=== PATIENT | female | born 1980 | race Caucasian/White ===

== ENCOUNTER 2020-07-05 11:14 | Outpatient (RCR) | payer OTHER, SELFPAY ==
[2020-07-06] MEDS: RHO(D) IMMUNE GLOBULIN 300 MCG/2 ML SYRINGE IM (15:16)
== END 2020-10-03 23:59 | disposition home or self-care (01) ==
LOC: ANHLAB 11:14
PROVIDERS: Visit Provider Obstetrics & Gynecology
DX: Z29.13 Encounter for prophylactic Rho(D) immune globulin (principal); O36.0190 Maternal care for anti-D [Rh] antibodies, unspecified trimester, not applicable or unspecified; Z3A.00 Weeks of gestation of pregnancy not specified
CPT/HCPCS: 36415; 85461; 90384; 96372; J2790

== ENCOUNTER 2020-09-25 22:08 | Observation (INO) | payer OTHER, SELFPAY ==
[2020-09-25 22:20] VITALS: TEMP 36.6
[2020-09-25 23:00] VITALS: BMI 32.8
--- NOTE | 2020-09-26 00:52 | OBADM ---
This patient, Letty Denny, admitted to the OB room Labor/Delivery/Recovery 108 for observation. Patient/family oriented to hospital policies and general routines including ID bracelet, bed and alarms, visiting hours, pain management, procedures, bathroom and other care routines, personal items, smoking policy, room service/diet, and visiting hours. Patient/Family are encouraged to report perceived risks to care and to ask questions if they do not understand what they are told or what they should do.
--- NOTE | 2020-09-26 07:32 | P.PNOB_ITS ---
OB - Triage/Final Diagnosis Visit Information Date of evaluation: 09/26/20 Reason for evaluation: threatened labor Comments/Additional reasons for admission: I have assessed the risk for this patient, Letty Denny, and determined that she would benefit from obs ervation care. Evaluation Vital signs: Vital Signs - 24 hr 09/25/20 22:20 Temperature 97.9 F
== END 2020-09-26 00:45 | disposition home or self-care (01) ==
PROVIDERS: Admitting Provider Obstetrics & Gynecology; Visit Provider Obstetrics & Gynecology
DX: O47.9 False labor, unspecified (principal); Z3A.00 Weeks of gestation of pregnancy not specified
CPT/HCPCS: G0378; G0379

== ENCOUNTER 2020-09-27 06:31 | Inpatient (IN) | payer OTHER, SELFPAY ==
[2020-09-27] VITALS (113 sets, daily range): BP systolic 74–129; BP diastolic 32–110; PULSE 59–110; RESP 17; TEMP 35.9–36.9; O2SAT 98–100; BMI 33.2
--- NOTE | 2020-09-27 06:31 | LDADM ---
This patient, Letty Denny, was admitted to Labor/Delivery/Recovery 107 on 09/27/20 at 06:31. Plans for labor, pain management and were discussed with patient. Patient/family oriented to hospital policies and general routines including ID bracelet, bed and alarms, visiting hours, pain management, procedures, bathroom and other care routines, personal items, smoking policy, room service/diet and guest tray routines, infant security routines, and visiting hours. Patient/Family are encouraged to report perceived risks to care and to ask questions if they do not understand what they are told or what they should do. See OBIX for further documentation.
--- NOTE | 2020-09-27 06:43 | PM.IMHP ---
H&P: HPI History of Present Illness Date/Time: 09/27/20 06:43 40-year-old 7 para 3 who is admitted with a last menstrual period of 12/28/2019, EDC of 10/02/2020, presents at 39 and half weeks gestation for induction of labor. Her has been uncomplicated and her cervix is favorable. Chief Complaint: medical induction of labor at term Review of Systems Review of Systems: All systems reviewed & are unremarkable except as noted in HPI and below PMFSH Family History Family History Other Unknown family medical history Social History Social History Substance use: never Spiritual care concerns: No Meds Home Medications and Allergies Home Medications Medication Instructions Recorded Confirmed Type prenat.vits,cherrie,krv-[id number] 1 tablet PO DAILY 09/09/20 09/09/20 History Allergies Allergy/AdvReac Type Severity Reaction Status Date / Time No Known Allergies Allergy Unverified 10/29/18 15:28 Exam Const: General: no acute distress Eyes: General: appearance normal, both eyes and all related structures Neck: Neck: supple and no JVD Thyroid: thyroid normal Resp: Effort & Inspection: normal respiratory effort Auscultation: clear to auscultation bilaterally Cardio: Rate: regular rate Rhythm: regular rhythm GI: Inspection: non-distended GI Palp: Yes Soft to palpation, No Tenderness to palpation present (GI) and No Guarding due to palpation present (GI) Auscultation: normal bowel sounds : General: Yes bladder normal to palpation External Female Exam: normal external appearance Speculum Exam - Vagina: normal vaginal discharge and No vaginal bleeding Speculum Exam - Cervix: nontender Bimanual exam- vagina & uterus: bladder normal to palpation and No Cervical tenderness present OB/external & speculum: No vaginal bleeding Skin: General skin exam: no rashes or lesions noted Extrem: General: normal to inspection and no edema Psych: Mental Status: mental status grossly normal Affect: normal affect Assessment and Plan Additional Plan Impression: Term with favorable cervix Plan: Medical induction of labor. Spontaneous vaginal delivery is expected. She has an epidural candidate
--- NOTE | 2020-09-27 06:52 | WPDOBADMIT ---
Obstetrics - Admit Note Admission Note: record reviewed. No pertinent additions to the history and/or any subsequent changes in the physical findings that are not consistent with the expected course of the were found. Additions to the history and/or subsequent changes in the physical findings follow. None. cervix 3cm/ 75%/ -1. AROM clear. FHTs reassuring
[2020-09-27 07:05] LABS: Basophils Absolute Auto 0.1 K/mm3 (0.0-0.1); Basophils Percent Auto 0.5 % (0.2-1.2); Eosinophils Absolute Auto 0.1 K/mm3 (0-0.3); Eosinophils Percent Auto 1.5 % (0-4.4); Hematocrit 36.6 % (37.0-47.0); Hemoglobin 12.2 g/dL (12.0-15.0); Immature Granulocyte Absolute 0.11 K/mm3 (0.00-0.031); Immature Granulocyte Percent A 1.1 % (0-0.5); Lymphocytes Absolute Auto 1.89 K/mm3 (0.9-3.2); Lymphocytes Percent Auto 19.6 % (18.3-44.2); Mean Corpuscular HGB Conc 33.3 g/dl (32-36); Mean Corpuscular Hemoglobin 31.9 pg (26-34); Mean Corpuscular Volume 95.8 fl (80-100); Mean Platelet Volume 9.4 fl (7.4-10.4); Monocytes Absolute Auto 0.6 K/mm3 (0.1-0.6); Monocytes Percent Auto 6.4 % (2.6-8.5); Neutrophils Absolute Auto 6.8 K/mm3 (1.3-6.7); Neutrophils Percent Auto 70.9 % (45.5-73.1); Platelet Count Result 253 k/mm3 (150-375); Red Blood Count 3.82 M/mm3 (4.2-5.4); Red Cell Distribution Width 13.4 % (11.5-14.5); White Blood Count 9.6 K/mm3 (4.5-10.0)
--- NOTE | 2020-09-27 08:35 | WPDANESEPP ---
Anes - Eval Pre Procedure Procedure: labor epidural Date/Time: 09/27/20 08:35 Surgeon: Vida Preop Diagnosis: Pain during labor Pre Op Diagnosis: induction Patient Data Age: 40 Gender: F Height: 6 ft Weight: 111 kg Last Vital Signs Temp 36.6 C 09/27/20 07:00 Pulse 91 09/27/20 08:31 BP 98/56 L 09/27/20 08:31 Allergies Allergy/AdvReac Type Severity Reaction Status Date / Time No Known Allergies Allergy Unverified 10/29/18 15:28 Home Medications Medication Instructions Recorded Confirmed Type prenat.vits,cherrie,bov-[id number]-[id number] 1 tablet PO DAILY 09/09/20 09/09/20 History Laboratory Tests 09/27/20 09/27/20 06:56 06:56 WBC 9.6 K/mm3 K/mm3 (4.5-10.0) RBC 3.82 M/mm3 L M/mm3 (4.2-5.4) Hgb 12.2 g/dL g/dL (12.0-15.0) Hct 36.6 % L % (37.0-47.0) MCV 95.8 fl fl (80-100) MCH 31.9 pg pg (26-34) MCHC 33.3 g/dl g/dl (32-36) RDW 13.4 % % (11.5-14.5) Plt Count 253 k/mm3 k/mm3 (150-375) MPV 9.4 fl fl (7.4-10.4) Immature Gran % (Auto) 1.1 % H % (0-0.5) Neut % (Auto) 70.9 % % (45.5-73.1) Lymph % (Auto) 19.6 % % (18.3-44.2) [place] % (Auto) 6.4 % % (2.6-8.5) Eos % (Auto) 1.5 % % (0-4.4) Baso % (Auto) 0.5 % % (0.2-1.2) Lymph # (Auto) 1.89 K/mm3 K/mm3 (0.9-3.2) [place] # (Auto) 0.6 K/mm3 K/mm3 (0.1-0.6) Eos # (Auto) 0.1 K/mm3 K/mm3 (0-0.3) Baso # (Auto) 0.1 K/mm3 K/mm3 (0.0-0.1) Abs Immat Gran (auto) 0.11 K/mm3 H K/mm3 (0.00-0.031) Absolute Neuts (auto) 6.8 K/mm3 H K/mm3 (1.3-6.7) Absolute Nucleated RBC 0.0 K/mm3 K/mm3 (0.0-0.012) Nucleated RBC % 0.0 % % (0.0-0.2) RPR Pending : gestational age (VALDO 10/02/20) Patient hx anesthesia problems: none Family hx anesthesia problems: none [facility] Family History Family History Other Unknown family medical history Social History Social History Smoking status: Former smoker Substance use: never Spiritual care concerns: No Exam Day of Procedure 09/27/20 08:35 Patient weight: normal Neurological: alert and oriented
[2020-09-27] MEDS: LACTATED RINGERS 1,000 ML 125 ML IV CONT ×3 (09:37→15:36)
[2020-09-27] MEDS: OXYTOCIN 30 UNITS/NS 500 ML 30 UNITS/500 ML BAG IV CONT (09:37)
[2020-09-27 09:49] LABS: Rapid Plasma Reagin Non-Reactive (NonReactive)
--- NOTE | 2020-09-27 11:36 | P.PNOB_ITS ---
OB - PN: Subj Subjective Date/time seen: 09/27/20 11:36 pit going fhts ok OB - PN: Obj Data Labs CBC & Chem 7: 09/27/20 06:56 Labs: Laboratory Results - last 24 hr 09/27/20 09/27/20 09/27/20 06:56 06:56 06:56 WBC 9.6 RBC 3.82 L Hgb 12.2 Hct 36.6 L MCV 95.8 MCH 31.9 MCHC 33.3 RDW 13.4 Plt Count 253 MPV 9.4 Immature Gran % (Auto) 1.1 H Neut % (Auto) 70.9 Lymph % (Auto) 19.6 [place] % (Auto) 6.4 Eos % (Auto) 1.5 Baso % (Auto) 0.5 Lymph # (Auto) 1.89 [place] # (Auto) 0.6 Eos # (Auto) 0.1 Baso # (Auto) 0.1 Abs Immat Gran (auto) 0.11 H Absolute Neuts (auto) 6.8 H Absolute Nucleated RBC 0.0 Nucleated RBC % 0.0 RPR Non-reactive Blood Type A Negative Antibody Screen Negative OB - PN A/P Time Spent With Patient Time: Total time spent is greater than 50% in coordination of care (as documented) at patient's floor/unit and/or counseling patient:
--- NOTE | 2020-09-27 16:04 | P.PNOB_ITS ---
OB - PN: Subj Subjective Date/time seen: 09/27/20 16:04 cx 4.5 fhts ok/epidural in OB - PN: Obj Data Labs CBC & Chem 7: 09/27/20 06:56 Labs: Laboratory Results - last 24 hr 09/27/20 09/27/20 09/27/20 06:56 06:56 06:56 WBC 9.6 RBC 3.82 L Hgb 12.2 Hct 36.6 L MCV 95.8 MCH 31.9 MCHC 33.3 RDW 13.4 Plt Count 253 MPV 9.4 Immature Gran % (Auto) 1.1 H Neut % (Auto) 70.9 Lymph % (Auto) 19.6 [place] % (Auto) 6.4 Eos % (Auto) 1.5 Baso % (Auto) 0.5 Lymph # (Auto) 1.89 [place] # (Auto) 0.6 Eos # (Auto) 0.1 Baso # (Auto) 0.1 Abs Immat Gran (auto) 0.11 H Absolute Neuts (auto) 6.8 H Absolute Nucleated RBC 0.0 Nucleated RBC % 0.0 RPR Non-reactive Blood Type A Negative Antibody Screen Negative OB - PN A/P Time Spent With Patient Time: Total time spent is greater than 50% in coordination of care (as documented) at patient's floor/unit and/or counseling patient:
--- NOTE | 2020-09-27 18:00 | P.PNOB_ITS ---
OB - PN: Subj Subjective Date/time seen: 09/27/20 18:00 complete/pushing fhts reassuring OB - PN: Obj Data Labs CBC & Chem 7: 09/27/20 06:56 Labs: Laboratory Results - last 24 hr 09/27/20 09/27/20 09/27/20 06:56 06:56 06:56 WBC 9.6 RBC 3.82 L Hgb 12.2 Hct 36.6 L MCV 95.8 MCH 31.9 MCHC 33.3 RDW 13.4 Plt Count 253 MPV 9.4 Immature Gran % (Auto) 1.1 H Neut % (Auto) 70.9 Lymph % (Auto) 19.6 [place] % (Auto) 6.4 Eos % (Auto) 1.5 Baso % (Auto) 0.5 Lymph # (Auto) 1.89 [place] # (Auto) 0.6 Eos # (Auto) 0.1 Baso # (Auto) 0.1 Abs Immat Gran (auto) 0.11 H Absolute Neuts (auto) 6.8 H Absolute Nucleated RBC 0.0 Nucleated RBC % 0.0 RPR Non-reactive Blood Type A Negative Antibody Screen Negative OB - PN A/P Time Spent With Patient Time: Total time spent is greater than 50% in coordination of care (as documented) at patient's floor/unit and/or counseling patient:
--- NOTE | 2020-09-27 18:36 | P.PCNOB_ITS ---
OB - Delivery Note Procedure Delivery date: 09/27/20 Procedure: mil Intrapartal events: None Induction method: AROM Delivery augmentation: pitocin Delivery monitor: external FHT Route of delivery: Episiotomy description: None Laceration Description: Perineal - 1st Degree Delivery repair: vicryl Specimen: No Quantitative Blood Loss (ml): 58 Anesthesia type: Epidural Disposition: floor [place] Baby Date of : 09/27/20 Time of : 18:24 Weeks of gestation at delivery: 39 Infant gender: Female presentation: vertex position: Right Occiput Anterior Placenta delivery description: Spontaneous cord vessel description: 3 Vessels
[2020-09-27] MEDS: OXYTOCIN 30 UNITS/NS 500 ML 30 UNITS/500 ML BAG 125 UNITS IV CONT (18:55)
[2020-09-27] MEDS: WITCH HAZEL 40 PADS 1 PAD TOPICAL (20:47)
[2020-09-27] MEDS: IBUPROFEN 600 MG TABLET PO (20:47)
[2020-09-27] MEDS: BENZOCAINE 20% AER SPR (*SP) 56 GM CAN 1 SPRAY TOPICAL (20:47)
--- NOTE | 2020-09-27 21:38 | OBPPTRN ---
Patient transferred to post room #286 via wheelchair with in crib. Oriented to unit, room, information board, rooming in, admission packet and security measures. Patient verbalizes understanding.
[2020-09-28 04:30] VITALS: BP 114/57; PULSE 74; RESP 17; TEMP 36.8
[2020-09-28 05:43] LABS: Hematocrit 32.5 % (37.0-47.0); Hemoglobin 11.2 g/dL (12.0-15.0)
--- NOTE | 2020-09-28 07:27 | P.DS_ITS ---
DS: Admitting Diagnosis Admitting Diagnosis Admitting Diagnosis: term iup DS: Summary Hospital Course Hospital Course: Patient was admitted for induction of labor on 09/27/2020. She had spontaneous vaginal delivery of a healthy and female. Her hospital course was unremarkable. She remained afebrile. She was up, ambulating, voiding the difficulty breast feeding, and generator thought com Time Spent with Patient Time attestation: Total time spent providing and/or coordinating discharge services: Exam Const: General: no acute distress Eyes: General: appearance normal, both eyes and all related structures Neck: Neck: supple and no JVD Thyroid: thyroid normal Resp: Effort & Inspection: normal respiratory effort Auscultation: clear to auscultation bilaterally Cardio: Rate: regular rate Rhythm: regular rhythm GI: Inspection: non-distended GI Palp: Yes Soft to palpation, No Tenderness to palpation present (GI) and No Guarding due to palpation present (GI) Auscultation: normal bowel sounds : General: Yes bladder normal to palpation External Female Exam: normal external appearance Speculum Exam - Vagina: normal vaginal discharge and No vaginal bleeding Speculum Exam - Cervix: nontender Bimanual exam- vagina & uterus: bladder normal to palpation and No Cervical tenderness present OB/external & speculum: No vaginal bleeding Skin: General skin exam: no rashes or lesions noted Extrem: General: normal to inspection and no edema Psych: Mental Status: mental status grossly normal Affect: normal affect DS: Data Data Completed and Pending Labs on day of discharge: Labs from last 24 hours 09/28/20 09/27/20 09/27/20 04:41 06:56 06:56 Hgb 11.2 L Hct 32.5 L RPR Non-reactive Blood Type A Negative Antibody Screen Negative Discharge Plan Discharge Attending physician on discharge: Vic Mcpherson Discharging Clinician: Vic Mcpherson Patient Disposition: Home, Self-Care Activity: may shower, no straining and pelvic rest Diet: heart healthy Wound Care Instructions: follow printed instructions Patient Instructions: Antibiotic Form Stand Alone Forms: General Discharge Information Follow-up/Referrals: Vic Mcpherson MD [Physician] - Discharge Medications: Continued prenat.vits,cherrie,[id number] Tablet 1 tablet PO DAILY RF: 0 Date of admission: 09/27/20 06:31 Primary Care Provider: PHYSICIAN,[employer]ROAD [employer]ER Admitting Provider: Vic Mcpherson Attending physician on admission: Vic Mcpherson Condition: Stable
--- NOTE | 2020-09-28 07:29 | PM.OBPNVD ---
OB - PN: Subj Subjective Date/time seen: 09/28/20 07:29 Patient comments: no complaints and pain well controlled baby status: doing well OB - PN: Obj Data Labs CBC & Chem 7: 09/28/20 04:41 Labs: Laboratory Results - last 24 hr 09/27/20 09/27/20 09/28/20 06:56 06:56 04:41 Hgb 11.2 L Hct 32.5 L RPR Non-reactive Blood Type A Negative Antibody Screen Negative OB - PN A/P Plan day: 1 Plan: routine care, discharge home and follow up 6 weeks Time Spent With Patient Time: Total time spent is greater than 50% in coordination of care (as documented) at patient's floor/unit and/or counseling patient: Time with patient: less than 15 minutes Review of Systems Review of Systems: All systems reviewed & are unremarkable except as noted in HPI and below Exam Const: General: no acute distress Eyes: General: appearance normal, both eyes and all related structures Neck: Neck: supple and no JVD Thyroid: thyroid normal Resp: Effort & Inspection: normal respiratory effort Auscultation: clear to auscultation bilaterally Cardio: Rate: regular rate Rhythm: regular rhythm GI: Inspection: non-distended GI Palp: Yes Soft to palpation, No Tenderness to palpation present (GI) and No Guarding due to palpation present (GI) Auscultation: normal bowel sounds : Speculum Exam - Vagina: normal appearance of the vagina Bimanual exam- vagina & uterus: enlarged Skin: General skin exam: no rashes or lesions noted Extrem: General: normal to inspection and no edema Psych: Mental Status: mental status grossly normal Affect: normal affect
[2020-09-28 08:20] VITALS: BP 99/51; PULSE 68; RESP 18; TEMP 37.2; O2SAT 98
[2020-09-28] MEDS: DOCUSATE SODIUM 100 MG CAPSULE PO (08:49)
[2020-09-28] MEDS: MULTIVIT/MIN/PREN/FOL AC/IRON TABLET 1 TAB PO (08:49)
[2020-09-28] MEDS: IBUPROFEN 600 MG TABLET PO (08:50)
[2020-09-28] MEDS: LANOLIN (LANSINOH) 7.5 GM CREAM 1 APPLIC TOPICAL (08:51)
[2020-09-28 12:20] VITALS: BP 117/58; PULSE 70; RESP 16; TEMP 37.3; O2SAT 98
[2020-09-28] MEDS: RHO(D) IMMUNE GLOBULIN 300 MCG/2 ML SYRINGE IM (13:14)
--- NOTE | 2020-09-28 15:32 | PC.NURSE ---
Mother called out for assist with feeding. Mother states this is 4th child to breastfeed. Mother had latch issues with latch child that resolved within a few weeks. Mother voices concerns is sleepy and not waking to feed for 4 hours. Assured mother this is normal she is not 24 hours old, to call out for assist with feeding. Reviewed has signs of adequate intake at this time. Reviewed infant feeding cues, frequencies, duration of feedings, feeding elimination flow sheet, and signs of adequate intake. Demonstrated stimulation techniques to wake for feeding. Assisted with infant to breast. Reviewed positioning/alignment in cross cradle, holding breast in ?U? hold and guided asymmetrical latch on. Infant able to latch correctly. Infant nursed eagerly, with steady draws and frequent swallowing noted. Reviewed signs of a correct latch, effective nursing and suck swallow ratio. Infant was able to maintain latch without discomfort to mother. Demonstrated how to adjust latch more deeply while feeding. Mother reports she can feel change in latch and has no tenderness. Nipple care reviewed of lanolin after feedings, warm compresses and gel pads as needed. Suggested mother stimulate while feeding to increase stimulate, increase intake and to assist with maintaining deep latch. Instructed mother to call out for RN assistance if she is unable to latch for feeding or she has discomfort with nursing. Instructed feeding should be initiated three hours from start of last feeding or if feeding cues are noted before. Mother voiced understanding of information shared. Mother plans on 24 hour discharge. Mother is feeding as required and waking infant to feed if needed. Infant is currently meeting outcomes for weight, output, jaundice and feeding frequencies. Mother states she feels confident to continue effective at home. Reviewed transition to breast milk, signs of adequate intake, and engorgement/relief. Instructed to call ICP if intake/output less than required. Reviewed regular medications mother is taking. Information provided per Joselyn. Reviewed community resources on the [employer] website and in the Mom/Baby guide. Information on outpatient services provided. Mother has no further questions at this time.
[2020-09-28 15:45] VITALS: BP 93/58; PULSE 71; RESP 18; TEMP 36.4; O2SAT 98
--- NOTE | 2020-09-28 17:12 | PC.NURSE ---
Patient viewed the discharge video Mother & Baby Care, The First Two Weeks . Patient was given the opportunity and encouraged to ask questions. Patient verbalized understanding of information shared and has been given the mother/baby guide for home reference.
== END 2020-09-28 19:47 | disposition home or self-care (01) | DRG 807 ==
LOC: ANHLDR 06:34 → ANHOB2 21:45
PROVIDERS: Admitting Provider Obstetrics & Gynecology; Visit Provider Obstetrics & Gynecology
DX: O70.1 Second degree perineal laceration during delivery (principal); Z37.0 Single live birth; Z3A.39 39 weeks gestation of pregnancy
CPT/HCPCS: 36415; 85014; 85018; 85025; 85461; 86592; 86850; 86900; 86901; 90384; A9270; G0378; G0379; J2590; J2790; J2795; J7120